=== PATIENT | female | born 2000 | race Hispanic/Latino ===

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

== ENCOUNTER 2020-07-09 01:13 | Emergency (ER) | payer SELFPAY ==
[~2020-07-09] VITALS: Ht 152.4 cm; Wt 68.0 kg
[~2020-07-09 01:13] MED LIST changes: +ROBITUSSIN AC10 ML PO; +ZITHROMAX250 MG PO
[2020-07-09 02:01] LABS: HEMATOCRIT 36.2 % (37.0-47.0); IMMATURE GRANULOCYTES 0.2 % (0.0-5.0); MEAN CORPUSCULAR HGB 28.8 pG CALC (26.0-32.0); MEAN CORPUSCULAR HGB CONC 33.1 g/dL CAL (32.0-36.0); NEUT# 4.27 thou/uL (2.00-7.15); RED BLOOD COUNT 4.16 mill/uL (4.20-5.60); RED CELL DISTRI WIDTH 12.1 % (11.5-15.5)
[2020-07-09 02:02] LABS: URINE BILIRUBIN - DIPSTICK NEGATIVE (NEGATIVE); URINE BLOOD DIPSTICK NEGATIVE (NEGATIVE); URINE CLARITY CLEAR; URINE COLOR YELLOW; URINE GLUCOSE - DIPSTICK NEGATIVE (NEGATIVE); URINE KETONE NEGATIVE (NEGATIVE); URINE LEUK ESTERASE NEGATIVE (Negative); URINE NITRITE - DIPSTICK NEGATIVE (Negative); URINE PH 6.5 (4.5-8.0); URINE PROTEIN - DIPSTICK NEGATIVE (NEG-TRACE); URINE SPECIFIC GRAVITY <=1.005; URINE UROBILINOGEN - DIPSTICK 0.2 E.U./dL (0.2)
[2020-07-09 02:16] LABS: ALBUMIN 4.2 g/dL (3.2-5.0); ANION GAP 16 (6-22 (CALC)); BILIRUBIN, TOTAL 0.2 mg/dL (0.0-1.4); BUN 10 mg/dL (7-17); BUN/CREATININE RATIO 23 (12-20 (CALC)); CARBON DIOXIDE 21 mmol/l (22-30); CHLORIDE 104 mmol/l (95-108); CREATININE 0.5 mg/dL (0.5-1.0); ETHYL ALCOHOL 251 mg/dl (0-30); GFR > 60 ML/MIN (>=60 (CALC)); GFR FOR AFR.AMER. > 60 ML/MIN (>=60 (CALC)); POTASSIUM 3.7 mmol/l (3.5-5.1); SGOT/AST 26 u/l (14-36); SODIUM 138 mmol/l (137-146); TOTAL PROTEIN 7.3 g/dL (6.3-8.2)
[2020-07-09 02:17] LABS: ALKALINE PHOSPHATASE 61 u/l (38-126)
[2020-07-09 03:20] VITALS: BP 121/65
== END 2020-07-09 03:45 | DRG 552 ==
LOC: ED 01:13
PROVIDERS: Family Medicine
DX: S16.1XXA Strain of muscle, fascia and tendon at neck level, initial encounter (principal); S00.31XA Abrasion of nose, initial encounter; F10.129 Alcohol abuse with intoxication, unspecified; V49.40XA Driver injured in collision with unspecified motor vehicles in traffic accident, initial encounter

== ENCOUNTER 2021-08-03 07:45 | Emergency (ER) | payer SELFPAY ==
[~2021-08-03] VITALS: Ht 152.4 cm; Wt 70.3 kg
[2021-08-03 08:42] LABS: URINE BILIRUBIN - DIPSTICK NEGATIVE (NEGATIVE); URINE BLOOD DIPSTICK LARGE (NEGATIVE); URINE COLOR YELLOW; URINE GLUCOSE - DIPSTICK NEGATIVE (NEGATIVE); URINE KETONE NEGATIVE (NEGATIVE); URINE LEUK ESTERASE NEGATIVE (NEGATIVE); URINE PH 5.5 (4.5-8.0); URINE PROTEIN - DIPSTICK NEGATIVE (NEG-TRACE); URINE SPECIFIC GRAVITY >=1.030; URINE UROBILINOGEN - DIPSTICK 0.2 E.U./dL (0.2)
[2021-08-03 08:50] LABS: ALBUMIN 4.6 g/dL (3.2-5.0); ALKALINE PHOSPHATASE 74 u/l (38-126); AMYLASE 81 u/l (30-110); ANION GAP 14 (6-22 (CALC)); BILIRUBIN, TOTAL 0.2 mg/dL (0.0-1.4); BUN 13 mg/dL (7-17); BUN/CREATININE RATIO 26 (12-20 (CALC)); CARBON DIOXIDE 21 mmol/l (22-30); CHLORIDE 107 mmol/l (95-108); CREATININE 0.5 mg/dL (0.5-1.0); GFR FOR AFR.AMER. > 60 ML/MIN (>=60 (CALC)); GFR OTHER RACES > 60 ML/MIN (>=60 (CALC)); LIPASE 90 u/l (23-300); POTASSIUM 3.7 mmol/l (3.5-5.1); SGOT/AST 26 u/l (14-36); SODIUM 138 mmol/l (137-146); TOTAL PROTEIN 7.9 g/dL (6.3-8.2)
[2021-08-03 08:54] LABS: URINE NITRITE - DIPSTICK NEGATIVE (Negative)
[2021-08-03 08:55] LABS: HEMATOCRIT 41.1 % (37.0-47.0); HEMOGLOBIN 13.4 g/dl (12.0-16.0); IMMATURE GRANULOCYTES 0.1 % (0.0-5.0); MEAN CELL VOLUME 89.5 fL CALC (80.0-100.0); MEAN CORPUSCULAR HGB 29.2 pG CALC (26.0-32.0); MEAN CORPUSCULAR HGB CONC 32.6 g/dL CAL (32.0-36.0); NEUT# 4.32 thou/uL (2.00-7.15); RED BLOOD COUNT 4.59 mill/uL (4.20-5.60); URINE RBC 25-50 RBC/hpf (0-5)
[2021-08-03] MEDS ORDERED: ULTRAM50 M1 PO (09:43)
[2021-08-03] MEDS ORDERED: ONDANSETRON4 MG PO (09:43)
[2021-08-03 09:53] VITALS: BP 117/70
== END 2021-08-03 10:02 | disposition home or self-care (01) | DRG 761 ==
LOC: ED 07:45
PROVIDERS: Emergency Medicine
DX: N94.6 Dysmenorrhea, unspecified (principal)
CPT/HCPCS: Q9967

== ENCOUNTER 2021-11-23 16:22 | Emergency (ER) | payer SELFPAY ==
[~2021-11-23] VITALS: Ht 152.4 cm; Wt 59.0 kg
[2021-11-23] VITALS (12 sets, daily range): BP systolic 70–140; BP diastolic 51–82
[~2021-11-23 16:22] MED LIST changes: +ONDANSETRON4 MG PO; +ULTRAM50 M1 PO
[2021-11-23 17:00] LABS: HEMATOCRIT 39.3 % (37.0-47.0); HEMOGLOBIN 13.1 g/dl (12.0-16.0); IMMATURE GRANULOCYTES 0.3 % (0.0-5.0); MEAN CELL VOLUME 89.5 fL CALC (80.0-100.0); MEAN CORPUSCULAR HGB 29.8 pG CALC (26.0-32.0); MEAN CORPUSCULAR HGB CONC 33.3 g/dL CAL (32.0-36.0); NEUT# 10.69 thou/uL (2.00-7.15); RED BLOOD COUNT 4.39 mill/uL (4.20-5.60); RED CELL DISTRI WIDTH 12.5 % (11.5-15.5)
[2021-11-23 17:04] LABS: URINE BILIRUBIN - DIPSTICK NEGATIVE (NEGATIVE); URINE BLOOD DIPSTICK TRACE-INTACT (NEGATIVE); URINE COLOR YELLOW; URINE GLUCOSE - DIPSTICK NEGATIVE (NEGATIVE); URINE KETONE TRACE mg/dL (NEGATIVE); URINE LEUK ESTERASE NEGATIVE (NEGATIVE); URINE PROTEIN - DIPSTICK NEGATIVE (NEG-TRACE); URINE SPECIFIC GRAVITY >=1.030
[2021-11-23 17:05] LABS: URINE NITRITE - DIPSTICK NEGATIVE (Negative)
[2021-11-23 17:11] LABS: ALBUMIN 4.9 g/dL (3.2-5.0); ALKALINE PHOSPHATASE 82 u/l (38-126); ANION GAP 17 (6-22 (CALC)); BILIRUBIN, TOTAL 0.3 mg/dL (0.0-1.4); BUN 12 mg/dL (7-17); BUN/CREATININE RATIO 21 (12-20 (CALC)); CARBON DIOXIDE 25 mmol/l (22-30); CHLORIDE 104 mmol/l (95-108); CREATININE 0.5 mg/dL (0.5-1.0); GFR FOR AFR.AMER. > 60 ML/MIN (>=60 (CALC)); GFR OTHER RACES > 60 ML/MIN (>=60 (CALC)); LIPASE 65 u/l (23-300); POTASSIUM 3.8 mmol/l (3.5-5.1); SGOT/AST 109 u/l (14-36); SODIUM 142 mmol/l (137-146); TOTAL PROTEIN 8.2 g/dL (6.3-8.2)
[2021-11-23] MEDS ORDERED: ZOFRAN4 MG/TAB PO (18:11)
== END 2021-11-23 19:01 | disposition home or self-care (01) | DRG 392 ==
LOC: ED 16:22
PROVIDERS: Family Medicine
DX: R10.32 Left lower quadrant pain (principal)

== ENCOUNTER 2021-12-06 00:07 | Emergency (ER) | payer SELFPAY ==
[~2021-12-06] VITALS: Ht 152.4 cm; Wt 63.0 kg
[~2021-12-06 00:07] MED LIST changes: +ZOFRAN4 MG/TAB PO
[2021-12-06 00:29] VITALS: BP 137/71
== END 2021-12-06 00:40 | disposition home or self-care (01) | DRG 605 ==
LOC: ED 00:07
DX: S61.102A Unspecified open wound of left thumb with damage to nail, initial encounter (principal); W45.8XXA Other foreign body or object entering through skin, initial encounter

== ENCOUNTER 2022-01-29 07:53 | Emergency (ER) | payer SELFPAY ==
[~2022-01-29] VITALS: Ht 152.4 cm; Wt 70.0 kg
[2022-01-29 08:21] VITALS: BP 129/81
[2022-01-29 08:51] LABS: HEMATOCRIT 39.7 % (37.0-47.0); HEMOGLOBIN 13.4 g/dl (12.0-16.0); IMMATURE GRANULOCYTES 0.2 % (0.0-5.0); MEAN CELL VOLUME 89.6 fL CALC (80.0-100.0); MEAN CORPUSCULAR HGB 30.2 pG CALC (26.0-32.0); MEAN CORPUSCULAR HGB CONC 33.8 g/dL CAL (32.0-36.0); NEUT# 6.93 thou/uL (2.00-7.15); RED BLOOD COUNT 4.43 mill/uL (4.20-5.60); RED CELL DISTRI WIDTH 12.7 % (11.5-15.5)
[2022-01-29 09:01] LABS: ALBUMIN 4.5 g/dL (3.2-5.0); ALKALINE PHOSPHATASE 89 u/l (38-126); ANION GAP 15 (6-22 (CALC)); BUN 10 mg/dL (7-17); BUN/CREATININE RATIO 21 (12-20 (CALC)); CARBON DIOXIDE 25 mmol/l (22-30); CHLORIDE 102 mmol/l (95-108); CREATININE 0.5 mg/dL (0.5-1.0); GFR FOR AFR.AMER. > 60 ML/MIN (>=60 (CALC)); GFR OTHER RACES > 60 ML/MIN (>=60 (CALC)); POTASSIUM 3.4 mmol/l (3.5-5.1); SGOT/AST 70 u/l (14-36); SODIUM 138 mmol/l (137-146); TOTAL PROTEIN 7.3 g/dL (6.3-8.2)
[2022-01-29 09:18] LABS: BETA-HCG, QUANT(RESULT NUMBER) 5935 mIU/mL
[2022-01-29 09:21] LABS: BILIRUBIN, TOTAL 1.1 mg/dL (0.0-1.4)
[2022-01-29 09:55] VITALS: BP 146/113
[2022-01-29 10:00] VITALS: BP 119/80
[2022-01-29 10:16] VITALS: BP 124/58
[2022-01-29 10:59] VITALS: BP 124/58
== END 2022-01-29 11:19 | disposition home or self-care (01) | DRG 833 ==
LOC: ED 07:53
PROVIDERS: Family Medicine
DX: O46.91 Antepartum hemorrhage, unspecified, first trimester (principal)

== ENCOUNTER 2023-09-23 21:22 | Emergency (ER) | payer SELFPAY ==
[~2023-09-23] VITALS: Ht 152.4 cm; Wt 58.0 kg
[2023-09-23 21:41] VITALS: BP 108/84
[2023-09-23 21:53] LABS: BASO% 0.2 % (0-3); EOS% 0.6 % (0-8); HEMATOCRIT 34.3 % (37.0-47.0); HEMOGLOBIN 11.2 g/dl (12.0-16.0); IMMATURE GRANULOCYTES 0.1 % (0.0-5.0); LYMPH% 15.1 % (15-41); MEAN CORPUSCULAR HGB 28.1 pG CALC (26.0-32.0); MEAN CORPUSCULAR HGB CONC 32.7 g/dL CAL (32.0-36.0); MONO% 4.7 % (2-13); NEUT# 8.23 thou/uL (2.00-7.15); NEUT% 79.3 % (42-76); RED BLOOD COUNT 3.99 mill/uL (4.20-5.60); RED CELL DISTRI WIDTH 14.3 % (11.5-15.5)
[2023-09-23 21:54] LABS: URINE BLOOD DIPSTICK Negative (NEGATIVE); URINE COLOR Yellow; URINE GLUCOSE - DIPSTICK Negative (NEGATIVE); URINE KETONE Trace mg/dL (NEGATIVE); URINE LEUK ESTERASE Negative (NEGATIVE); URINE NITRITE - DIPSTICK Negative (Negative); URINE PROTEIN - DIPSTICK Negative (NEG-TRACE)
[2023-09-23 22:00] VITALS: BP 119/74
[2023-09-23 22:07] LABS: BILIRUBIN, TOTAL 0.7 mg/dL (0.02-1.3); CREATININE 0.4 mg/dL (0.5-1.0); POTASSIUM 3.3 mmol/l (3.5-5.1); TOTAL PROTEIN 6.9 g/dL (6.3-8.2)
[2023-09-23 22:30] VITALS: BP 114/76
[2023-09-23 22:45] VITALS: BP 114/76
== END 2023-09-23 22:45 | disposition home or self-care (01) | DRG 833 ==
LOC: ED 21:22
PROVIDERS: Family Medicine
DX: O9A.211 Injury, poisoning and certain other consequences of external causes complicating pregnancy, first trimester (principal); R10.2 Pelvic and perineal pain; W01.0XXA Fall on same level from slipping, tripping and stumbling without subsequent striking against object, initial encounter; Z3A.13 13 weeks gestation of pregnancy

== ENCOUNTER 2024-01-09 13:31 | Emergency (ER) | payer SELFPAY ==
[~2024-01-09] VITALS: Ht 152.4 cm; Wt 61.0 kg
[2024-01-09 13:40] VITALS: BP 116/67
[2024-01-09 13:58] LABS: BASO% 0.2 % (0-3); EOS% 0.2 % (0-8); HEMATOCRIT 32.6 % (37.0-47.0); HEMOGLOBIN 10.4 g/dl (12.0-16.0); IMMATURE GRANULOCYTES 0.1 % (0.0-5.0); LYMPH% 18.5 % (15-41); MEAN CORPUSCULAR HGB 26.5 pG CALC (26.0-32.0); MEAN CORPUSCULAR HGB CONC 31.9 g/dL CAL (32.0-36.0); MONO% 3.9 % (2-13); NEUT# 7.61 thou/uL (2.00-7.15); NEUT% 77.1 % (42-76); RED BLOOD COUNT 3.93 mill/uL (4.20-5.60); RED CELL DISTRI WIDTH 13.9 % (11.5-15.5)
[2024-01-09 14:00] VITALS: BP 89/40
[2024-01-09 14:05] LABS: ALBUMIN 3.6 g/dL (3.2-5.0); CREATININE 0.4 mg/dL (0.5-1.0); POTASSIUM 3.7 mmol/l (3.5-5.1); TOTAL PROTEIN 6.6 g/dL (6.3-8.2)
[2024-01-09 14:06] LABS: BILIRUBIN, TOTAL 0.4 mg/dL (0.02-1.3)
[2024-01-09] MEDS ORDERED: SODIUM CHLORIDE 0.9% 1,000 ML IV ONE (14:10)
[2024-01-09 14:50] VITALS: BP 101/69
[2024-01-09 15:00] VITALS: BP 104/69
[2024-01-09 15:30] VITALS: BP 101/64
== END 2024-01-09 15:46 | disposition home or self-care (01) | DRG 833 ==
LOC: ED 13:31
PROVIDERS: Family Medicine
DX: O26.853 Spotting complicating pregnancy, third trimester (principal); Z3A.29 29 weeks gestation of pregnancy

== ENCOUNTER 2024-02-15 11:03 | Emergency (ER) | payer SELFPAY ==
[2024-02-15] VITALS (13 sets, daily range): BP systolic 136–204; BP diastolic 95–118
[~2024-02-15] VITALS: Ht 152.4 cm; Wt 65.0 kg
[2024-02-15] MEDS ORDERED: LACTATED RINGER'S 1,000 ML IV ONE (11:20)
[2024-02-15] MEDS ORDERED: LABETALOL HCL 100 MG/20 ML VIAL IV ONE ×3 (11:30→11:35)
[2024-02-15] MEDS ORDERED: niCARdipine HCL 25 MG/10 ML SDV IV ONE (11:49)
[2024-02-15 11:54] LABS: BASO% 0.3 % (0-3); HEMATOCRIT 33.4 % (37.0-47.0); HEMOGLOBIN 11.1 g/dl (12.0-16.0); IMMATURE GRANULOCYTES 0.2 % (0.0-5.0); MEAN CORPUSCULAR HGB 25.2 pG CALC (26.0-32.0); MEAN CORPUSCULAR HGB CONC 33.2 g/dL CAL (32.0-36.0); MONO% 4.5 % (2-13); NEUT# 9.91 thou/uL (2.00-7.15); RED BLOOD COUNT 4.4 mill/uL (4.20-5.60); RED CELL DISTRI WIDTH 14.7 % (11.5-15.5)
[2024-02-15 11:59] LABS: MEAN CELL VOLUME 75.9 fL CALC (80.0-100.0)
[2024-02-15] MEDS ORDERED: niCARdipine HCL 25 MG in DEXTROSE 5% 240 ML IV ONE (12:00)
[2024-02-15] MEDS ORDERED: hydrALAZINE HCL 20 MG/ML VIAL(1 ML) IV ONE (12:05)
[2024-02-15 12:13] LABS: ALBUMIN 3.9 g/dL (3.2-5.0); CREATININE 0.7 mg/dL (0.5-1.0); POTASSIUM 4.1 mmol/l (3.5-5.1)
[2024-02-15 12:14] LABS: BILIRUBIN, TOTAL 1.6 mg/dL (0.02-1.3)
== END 2024-02-15 12:45 | DRG 831 ==
LOC: ED 11:03
PROVIDERS: Family Medicine
DX: O14.93 Unspecified pre-eclampsia, third trimester (principal); O60.03 Preterm labor without delivery, third trimester; Z3A.34 34 weeks gestation of pregnancy
CPT/HCPCS: J0360; J1920